=== PATIENT | male | born 2005 | race Hispanic/Latino ===

== ENCOUNTER 2023-08-27 19:01 | Emergency (ER) | payer OTHER, SELFPAY ==
[2023-08-27 19:12] VITALS: BP 137/70; PULSE 84; RESP 16; TEMP 36.4; O2SAT 100
--- NOTE | 2023-08-27 19:23 | ED.EAR ---
HPI - Ear Problem General Chief complaint: Ear Stated complaint: Ear Irritation Time Seen by Provider: 08/27/23 19:03 Source: patient Mode of arrival: ambulatory Limitations: no limitations History of Present Illness HPI Narrative: Eliceo is a 17-year-old male patient presenting to the clinic today with complaints left ear discomfort. States that he feels a swishing in his ear in can also his heartbeat at times. This has been going on for the last several days. Related Data Home Medications Medication Instructions Recorded Confirmed No Home Medications 08/27/23 08/27/23 Allergies Allergy/AdvReac Type Severity Reaction Status Date / Time No Known Allergies Allergy Verified 08/27/23 19:03 Review of Systems Review of Systems: Pertinent positives per HPI. Patient denies any fever, chills, rash, headache, visual changes, dizziness, cough, runny nose, sore throat, shortness of breath, chest pain, palpitations, nausea, vomiting, diarrhea, constipation, abdominal pain, or any urinary issues. PMFSH Comments At the time of my signature, I reviewed and agree with the nursing past medical, surgical, social, and family history. There is no relevant family history pertinent to the patient complaint. Exam Narrative: General: Well-developed, well nourished, in no apparent distress Head: Normocephalic, atraumatic Eyes: Pupils equally round and reactive to light bilaterally, EOM intact, sclera and conjunctive clear, no discharge, lids normal Ears: Right ear canal ceruminous and left ear canal ceruminous impaction, unable to visualize TMs, no drainage, grossly hearing normal. Nose: Nares patent, no discharge, no inflammation, no sinus tenderness. Mouth: Oropharynx without lesions or masses, good dentition, MMM. Neck: Supple, trachea midline, no enlargement of anterior or posterior cervical nodes, no thyroid masses or goiter palpable. Cardio: Regular rate and rhythm, s1 and s2 normal, no murmur appreciated. Resp: Clear to auscultation bilaterally anteriorly and posteriorly, no rhonchi, rales, wheezing or rubs Course Course Emergency Course: Portions of this record may have been created with voice recognition software. Level of Care: Express Care Visit Vital Signs Vital signs: Vital Signs Temperature 36.4 C 08/27/23 19:12 Pulse Rate 84 08/27/23 19:12 Respiratory Rate 16 08/27/23 19:12 Blood Pressure 137/70 08/27/23 19:12 Pulse Oximetry 100 08/27/23 19:12 Oxygen Delivery Room Air 08/27/23 19:12 Temperature 36.4 C 08/27/23 19:12 Pulse Rate 84 08/27/23 19:12 Respiratory Rate 16 08/27/23 19:12 Blood Pressure 137/70 08/27/23 19:12 Pulse Oximetry 100 08/27/23 19:12 Oxygen Delivery Room Air 08/27/23 19:12 Vital signs reviewed Procedures Ear Wax Removal Left Ear: Ear Wax Removal Date: 08/27/23 Results: Re-examined: some cerumen remains TM Examination: other (Unable to visualize left TM) Medical Decision Making MDM Narrative Medical decision making narrative: At the time of visit patient is resting comfortably on the exam table. Patient appears to be nontoxic. Procedures: Ear lavage of the left ear was performed. Plan: Ear lavage was performed, most of cerumen was removed from the left ear in his symptoms are improved. Recommend using the Debrox. Supportive measures were discussed with the patient and they voiced understanding discharge instructions and agrees to treatment plan. Return precautions reviewed Differential Diagnosis Differential Diagnosis: Otitis media, otitis externa, eustachian tube dysfunction, cerumen impaction, upper respiratory infection, serous otitis Vital Signs Vital Signs: Vital Signs Temperature 36.4 C 08/27/23 19:12 Pulse Rate 84 08/27/23 19:12 Respiratory Rate 16 08/27/23 19:12 Blood Pressure 137/70 08/27/23 19:12 Pulse Oximetry 100 08/27/23 19:12 Oxygen Delivery Room Air 08/27/23 19
== END 2023-08-27 19:55 | disposition home or self-care (01) ==
PROVIDERS: Emergency Provider Nurse Practitioner Family
DX: H93.A2 Pulsatile tinnitus, left ear (principal); H61.22 Impacted cerumen, left ear
CPT/HCPCS: 69209; 99212; G0463

== ENCOUNTER 2024-05-24 11:09 | Emergency (ER) | payer OTHER, SELFPAY ==
--- NOTE | 2024-05-24 11:15 | ED_ITS ---
HPI - Ear Problem General Chief complaint: Upper Respiratory Infection Stated complaint: Head/Ears Pain Time Seen by Provider: 05/24/24 11:30 Source: patient Mode of arrival: ambulatory Limitations: no limitations History of Present Illness HPI Narrative: Eliceo is a 18-year-old male patient presenting to the clinic today with complaints of headache, left ear pain, and sore throat times 2-3 days. He denies any known fever, chills, body aches. States his throat is sore when he swallows. Feels as though his left ear is full Related Data Allergies Allergy/AdvReac Type Severity Reaction Status Date / Time No Known Allergies Allergy Verified 05/24/24 11:19 Review of Systems Review of Systems: Pertinent positives per HPI. Patient denies any fever, chills, rash, visual changes, dizziness, cough, shortness of breath, chest pain, palpitations, nausea, vomiting, diarrhea, constipation, abdominal pain, or any urinary issues. PMFSH Comments At the time of my signature, I reviewed and agree with the nursing past medical, surgical, social, and family history. There is no relevant family history pertinent to the patient complaint. Exam Narrative: General: Well-developed, well nourished, in no apparent distress Head: Normocephalic, atraumatic Eyes: Pupils equally round and reactive to light bilaterally, EOM intact, sclera and conjunctive clear, no discharge, lids normal Ears: Right TMs intact and clear, left TM intact, bulging, red, impaction to the left ear canal, irrigation was performed successfully, ear canals clear, no drainage, grossly hearing normal. Nose: Nares patent, clear nasal discharge, no inflammation, no sinus tenderness. Mouth: Oral pharynx red with bilateral tonsillar without lesions or masses, good dentition, MMM. Neck: Supple, trachea midline, enlargement of anterior cervical nodes, no thyroid masses or goiter palpable. Cardio: Regular rate and rhythm, s1 and s2 normal, no murmur appreciated. Resp: Clear to auscultation bilaterally, no rhonchi, rales, wheezing or rubs Course Course Emergency Course: Portions of this record may have been created with voice recognition software. Level of Care: Express Care Visit Vital Signs Vital signs: Vital Signs Temperature 36.1 C L 05/24/24 11:18 Pulse Rate 86 05/24/24 11:18 Respiratory Rate 16 05/24/24 11:18 Blood Pressure 135/67 05/24/24 11:18 Pulse Oximetry 100 05/24/24 11:18 Oxygen Delivery Room Air 05/24/24 11:18 Temperature 36.1 C L 05/24/24 11:18 Pulse Rate 86 05/24/24 11:18 Respiratory Rate 16 05/24/24 11:18 Blood Pressure 135/67 05/24/24 11:18 Pulse Oximetry 100 05/24/24 11:18 Oxygen Delivery Room Air 05/24/24 11:18 Vital signs reviewed Procedures Ear Wax Removal Left Ear: Ear Wax Removal Date: 05/24/24 Cerumenolytic Used: other (Debrox) Results: Re-examined: cerumen removed completely TM Examination: TM(s) erythematous Ear Canal Exam: atraumatic Patient Tolerated Procedure: well and no complications Complications: no problems Technique: ear canal irrigated Additional Comments: Verbal consent obtained for ear irrigation. Risk and benefits explained and patient voiced understanding. Ear irrigation performed using an elephant ear and spray water bottle. Mixture of 1/2 peroxide 1/2 water used to irrigate ear canal. Cerumen impaction cleared and TM visualized and intact with redness. Grossly hearing normal. Patient tolerated procedure well Medical Decision Making MDM Narrative Medical decision making narrative: At the time of visit patient is resting comfortably on the exam table. Patient appears to be nontoxic. Labs: Strep test was positive in the clinic today. Plan: Strep test was positive. Irrigation was performed and shows a left otitis media. Prescription for amoxicillin was sent to the pharmacy. Supportive measures were discussed with the patient and they voiced underst anding discharge instructions and agrees to treatment plan. Return precautions reviewed Differential Diagnosis Differential Diagnosis: Otitis media, otitis externa, eustachian tube dysfunction, cerumen impaction, upper respiratory infection, strep pharyngitis Vital Signs Vital Signs: Vital Signs Temperature 36.1 C L 05/24/24 11:18 Pulse Rate 86 05/24/24 11:18 Respiratory Rate 16 05/24/24 11:18 Blood Pressure 135/67 05/24/24 11:18 Pulse Oximetry 100 05/24/24 11:18 Oxygen Delivery Room Air 05/24/24 11:18 Temperature 36.1 C L 05/24/24 11:18 Pulse Rate 86 05/24/24 11:18 Respiratory Rate 16 05/24/24 11:18 Blood Pressure 135/67 05/24/24 11:18 Pulse Oximetry 100 05/24/24 11:18 Oxygen Delivery Room Air 05/24/24 11:18 Lab Data Labs: Lab Results 05/24/24 Range/Units 11:31 POC Grp A Strep Screen Positive (Negative) Discharge Plan Discharge Clinical Impression: Pharyngitis, streptococcal, Acute left otitis media Cerumen impaction Qualifiers: Laterality: left Qualified Code(s): H61.22 - Impacted cerumen, left ear Patient Disposition: Home, Self-Care Condition: Stable Instructions: Antibiotic Form, Strep Throat (ED), Ear Infection (ED) Additional Instructions: Strep test is positive in the clinic today. Left ear irrigation was performed in the clinic today Take prescription medications only as prescribed-amoxicillin Change your toothbrush in 24 hours after initiation of the antibiotics Increase fluids and stay well hydrated Tylenol/motrin for pain/fever Flonase and OTC antihistamines as directed Vicks vapor rub to open sinuses Sinus rinses for congestion Cepacol spray, cough drops, throat lozenges, warm tea with honey/lemon, gargle salt water to soothe throat BRAT diet for diarrhea Clear liquids x 24 hours then advance as tolerated for nausea/vomiting Go to the ED if you develop a worsening in your condition- high fever not controlled by Tylenol or Motrin, dehydration, weakness, lethargy, shortness of breath, or chest pain. Follow up with your PCP in 3-5 days if symptoms persist. Patient Language: Swedish Prescriptions: New amoxicillin 875 mg tablet 875 mg PO Q12H 10 Days Qty: 20 0RF Follow-up/Referrals: PHYSICIAN,DELIVERY ARCHITECT [Primary Care Provider] - Stand Alone Forms: Work/School Release IP Time of Disposition: 11:38 Quality NIHSS Nursing Documentation ED NIHSS nursing documentation: reviewed/agree
[2024-05-24 11:18] VITALS: BP 135/67; PULSE 86; RESP 16; TEMP 36.1; O2SAT 100
[2024-05-24 11:33] LABS: EDSTREPNEGPOS1 Positive (Negative)
[2024-05-24] MEDS: CARBAMIDE PEROXIDE 6.5% OT SOLN 15 ML BTL 5 DROP LEFT EAR (11:43)
== END 2024-05-24 12:05 | disposition home or self-care (01) ==
PROVIDERS: Emergency Provider Nurse Practitioner Family
DX: J02.0 Streptococcal pharyngitis (principal); H66.92 Otitis media, unspecified, left ear; H61.22 Impacted cerumen, left ear
CPT/HCPCS: 69209; 87880; 99213; A9270; G0463

== ENCOUNTER 2025-02-16 14:55 | Emergency (ER) | payer OTHER, SELFPAY ==
[2025-02-16 15:05] VITALS: BP 125/71; PULSE 91; RESP 18; TEMP 36.7; O2SAT 100
[2025-02-16 15:14] LABS: EDSTREPNEGPOS1 Negative (Negative)
--- NOTE | 2025-02-16 15:29 | ED_ITS ---
HPI - URI/Sore Throat General Chief Complaint: Upper Respiratory Infection Stated Complaint: sore throat Time Seen by Provider: 02/16/25 15:10 Source: patient and RN notes reviewed Mode of arrival: ambulatory Limitations: no limitations History of Present Illness HPI Narrative: 19-year-old male patient presents Express Care complaining of sore throat for 3 days. Patient denies any other upper respiratory symptoms, cough, fevers, body aches, chills, nausea vomiting, diarrhea, chest pain, difficulty breathing or any other symptoms. Patient denies any significant past medical history. Patient has not taken anything help with symptoms. Related Data Allergies Allergy/AdvReac Type Severity Reaction Status Date / Time No Known Allergies Allergy Verified 02/16/25 15:07 Review of Systems Review of Systems: CONSTITUTIONAL: Denies fever, chills, or sweats. EYES: Denies visual changes, redness, or discharge. ENT: Denies rhinorrhea, congestion, or otalgia. Positive for sore throat. CARDIOVASCULAR: Denies chest pain, palpitations, or edema. RESPIRATORY: Denies cough or dyspnea. GASTROINTESTINAL: Denies abdominal pain, nausea, vomiting, or diarrhea. GENITOURINARY: Denies dysuria or hematuria. SKIN: Denies rash or itching. MUSCULOSKELETAL: Denies back pain, joint pain, or myalgia. NEUROLOGIC: Denies headache, numbness, or weakness. PSYCHIATRIC: Denies anxiety or depression. All other systems reviewed are negative, except as documented in HPI. PMFSH Comments At the time of my signature, I reviewed and agree with the nursing past medical, surgical, social, and family history. There is no relevant family history pertinent to the patient complaint. Exam Narrative: GENERAL: This is a well-nourished, well-developed adult, in no apparent distress. They are non ill-appearing, nontoxic appearing. HEAD: normocephalic, atraumatic. EYES: Sclera clear/white. Conjunctiva normal. Vision is grossly intact. Extraocular movements intact EARS: External ears normal, auditory canals clear and without drainage, TMs normal without perforation. Hearing grossly intact. NOSE: External nose normal with no obvious nasal discharge, nasal turbinates without redness, no rhinorrhea. THROAT: Mucous membranes moist, posterior pharynx erythematous. No exudate. Uvula midline. NECK: Neck supple, non-tender without lymphadenopathy, masses or thyromegaly. CARDIOVASCULAR: Regular rate and rhythm without murmurs, gallops, or rubs. RESPIRATORY: Clear to auscultation. Breath sounds equal bilaterally. No wheezes, rales, or rhonchi. SKIN: warm, Dry, intact with no suspicious lesions or rash, good texture and turgor. NEURO: awake, alert, and oriented to person, place and time. There were no obvious focal neurologic abnormalities. EXTREMITIES: No joint tenderness, effusion, or edema noted. BACK: Nontender without deformity. Course Course Emergency Course: Portions of this record may have been created with voice recognition software Level of Care: Express Care Visit Vital Signs Vital signs: Vital Signs Temperature 98.0 F 02/16/25 15:05 Pulse Rate 91 02/16/25 15:05 Respiratory Rate 18 02/16/25 15:05 Blood Pressure 125/71 02/16/25 15:05 Pulse Oximetry 100 02/16/25 15:05 Oxygen Delivery Room Air 02/16/25 15:05 Temperature 98.0 F 02/16/25 15:05 Pulse Rate 91 02/16/25 15:05 Respiratory Rate 18 02/16/25 15:05 Blood Pressure 125/71 02/16/25 15:05 Pulse Oximetry 100 02/16/25 15:05 Oxygen Delivery Room Air 02/16/25 15:05 Reviewed MDM - URI/Sore Throat MDM Narrative Medical decision making narrative: Rapid strep negative. Throat culture is pending. Symptoms likely viral in etiology. Discussed supportive care. Will give him 1 time dose of dexametha sone for the pain. Discussed physical exam findings. Advised supportive measures and signs/symptoms to go to the ER. Pt is appropriate for outpt treatment and f/u. Differential Diagnosis Differential diagnosis: Likely upper respiratory infection, sinusitis, viral infection and pharyngitis Lab Data Attestation: I reviewed the patient's lab results. Labs: Lab Results 02/16/25 Range/Units 15:11 POC Grp A Strep Screen Negative (Negative) Critical Care Time Critical Care Time Critical Care Time: No Discharge Plan Discharge Clinical Impression: Pharyngitis Qualifiers: Pharyngitis/tonsillitis etiology: unspecified etiology Qualified Code(s): J02.9 - Acute pharyngitis, unspecified Patient Disposition: Home Condition: Stable Instructions: Antibiotic Form, Pharyngitis (ED) Additional Instructions: Your rapid strep swab was negative today at [facility]. You will be notified in a few days if the culture comes back positive for strep, and appropriate antibiotics will be called in for you at that time. Your symptoms are likely due to a viral illness, which is not treated with antibiotics. Viral symptoms can be present for up to 10-14 days. You may take ibuprofen 600 mg to 800 mg every 6-8 hours. Do not exceed more than 800 mg of ibuprofen per dose. Do not exceed more than 3200 mg ibuprofen in a day. You may take up to 1000 mg Tylenol every 6-8 hours. Do not exceed 1000 mg per dose, do exceed more than 4000 mg of Tylenol in a day. Salt water gargle rinses and spit as needed for sore throat. Warm peppermint tea is also soothing for sore throat. Take dexamethasone as directed. Rest and stay hydrated. Follow up with your PCP in 5-7 days if symptoms are not improving. Go to the ER immediately if you developed chest pains, fevers, vomiting, difficulty breathing or swallowing, or any serious concerns. Patient Language: Romanian Prescriptions: New dexamethasone 2 mg tablet 10 mg PO ONCE 1 Days Qty: 5 0RF Follow-up/Referrals: PHYSICIAN,CARDIOVASCULAR RADIOLOGIC TECHNOLOGIST [Primary Care Provider, Internal Medicine] Time of Disposition: 15:23
== END 2025-02-16 15:27 | disposition home or self-care (01) ==
DX: J02.9 Acute pharyngitis, unspecified (principal)
CPT/HCPCS: 87081; 87880; 99213; G0463